=== PATIENT | male | born 1950 | race African-American/Black ===

== ENCOUNTER 2016-08-29 05:54 | Inpatient (IN) | payer OTHER, MEDICARE ==
--- NOTE | 2016-08-28 16:16 | GHP ---
[f rep st] PREOP HISTORY AND PHYSICAL Amended report ADMISSION DIAGNOSIS: Adenocarcinoma of the prostate. HISTORY OF PRESENT ILLNESS: This is a 66-year-old male who had [employer] insurance, was diagnosed with Carla score 6, and 66% of the cores had a positive biopsy. He had a Prolaris that showed a more aggressive lesion at 4.5. His most recent PSA of 05/2016 of 10.5. MRI noted a BI-RADS 4 anterior transition zone lesion. Options have been outlined and at the present time he is admitted for a robotic-assisted radical prostatectomy with bilateral pelvic lymphadenectomy. PAST MEDICAL HISTORY: He has had BPH, diabetes, erectile dysfunction. PAST SURGICAL HISTORY: Hip and knee surgery. MEDICATIONS: Include allopurinol, Flagyl, levothyroxine, aspirin, simvastatin. ALLERGIES: None. FAMILY HISTORY: Hypertension, heart disease, and diabetes. SOCIAL HISTORY: Alcohol rare consumption/never, and nonsmoker. REVIEW OF SYSTEMS: Negative cardiac, respiratory, GI, and endocrine. PHYSICAL EXAMINATION: VITAL SIGNS: Stable. CHEST: Clear. HEART: Regular rate and rhythm. ABDOMEN: Normal. No organomegaly, rebound, or guarding. LOWER EXTREMITIES: Normal. IMAGING STUDIES: He has had an MRI that reveals a prostate volume of 35 g, and at the right anterior transition zone there is a 1.4 cm T2 signal hypointensity lesion and avid early arterial enhancement in the region. The diffusion images are markedly degraded due to the left hip and are nondiagnostic. Seminal vesicles are unremarkable. There is no appearance of neurovascular bundle involvement and no significant lymphadenopathy on MRI. PLAN: Indications, complications, and options have been discussed. Written and verbal consent was obtained. He is admitted for the above procedure. /[id number]/MODL Add acc#, 08/28/16, isamar SCOTT
--- NOTE | 2016-08-28 16:56 | PDHPUP ---
History & Physical Update H&P update statement: This history and physical update is based on an assessment of the patient which was completed after admission or registration (within 24 hours), but prior to the surgery/procedure. H&P update: H&P reviewed & patient examined, no change in patient's condition since H&P completed
[2016-08-29] MEDS ORDERED: ceFAZolin 3 GM in D5W 100 ML IV ONE (06:00)
[2016-08-29] MEDS ORDERED: LIDOCAINE 1% 2 ML INJ ID PRN (06:51)
[2016-08-29] MEDS ORDERED: LR 1,000 ML IV ONE (06:51)
[2016-08-29] MEDS ORDERED: MIDAZOLAM 2 MG/2 ML VIAL IVP ONE (07:03)
--- NOTE | 2016-08-29 07:05 | PDANEPAE ---
ANE History of Present Illness Patient presents for Robotic Prostate ANE Past Medical History - Cardiovascular History Hx Hypertension: No Hx Arrhythmias: No Hx Chest Pain: No Hx Coronary Artery / Peripheral Vascular Disease: No Hx CHF / Valvular Disease: No Hx Palpitations: No Cardiovascular History Comment: elevated cholesterol - Pulmonary History Hx COPD: No Hx Asthma/Reactive Airway Disease: Yes Hx Recent Upper Respiratory Infection: No Hx Oxygen in Use at Home: No Hx Sleep Apnea: No - Neurologic History Hx Cerebrovascular Accident: No Hx Seizures: No Hx Dementia: No - Endocrine History Hx Diabetes: No Endocrine History Comment: has been told he is prediabetic. gout. hypothyroidism - Renal History Hx Renal Disorders: No - Liver History Hx Hepatic Disorders: No - Neurological & Psychiatric Hx Hx Neurological and Psychiatric Disorders: No - Cancer History Hx Cancer: Yes Cancer History Comment: prostate cancer - Congenital Disorder History Hx Congenital Disorders: No - GI History Hx Gastrointestinal Disorders: No - Other Health History Other Health History: couple missing teeth on right side - Chronic Pain History Chronic Pain: No - Surgical History Prior Surgeries: right achilles tendon repair. bilateral meniscus. left hip replacement 2015 ANE Review of Systems - Exercise capacity Exercise capacity: >=4 METS METS (RN): 4 METS ANE Patient History - Allergies Allergies/Adverse Reactions: lisinopril Allergy (Severe, Verified 08/09/16 14:30) - Home Medications Home Medications: Albuterol Sulfate [Ventolin Hfa] 1 puffs IH Q6 PRN 08/09/16 [Last Taken 05:30] Allopurinol [Allopurinol 300 MG (RX)] 300 mg PO DAILY 08/09/16 [Last Taken 08/27] Aspirin [Aspirin 81mg (*)] 81 mg PO DAILY 08/09/16 [Last Taken 08/22/16] Cholecalciferol Vit D3 [Vitamin D3 (*)] 2,000 units PO DAILY 08/09/16 [Last Taken 08/22/16] Levothyroxine [Synthroid 100 mcg (*)] 100 mcg PO DAILY06 08/09/16 [Last Taken ] Simvastatin 40 mg PO DAILY 08/09/16 [Last Taken 08/27/16] - Smoking Hx Smoking Status: Never smoked - Family Anes Hx Family Hx Anesthesia Complications: none ANE Labs/Vital Signs - Vital Signs Height: 185.42 cm Weight: 122.47 kg ANE Physical Exam - Airway Neck exam: FROM Mallampati Score: Class 1 Mouth exam: normal dental/mouth exam - Pulmonary Pulmonary: no respiratory distress - Cardiovascular Cardiovascular: regular rate and rhythym - ASA Status ASA Status: II ANE Anesthesia Plan Anesthesia Plan: general endotracheal anesthesia (rba discussed)
[2016-08-29] MEDS ORDERED: PROPOFOL 200 MG/20 ML VIAL ONE ×2 (07:08→07:10)
[2016-08-29] MEDS ORDERED: MIDAZOLAM 2 MG/2 ML VIAL ONE (07:08)
[2016-08-29] MEDS ORDERED: fentaNYL 100 MCG/2 ML INJ ONE (07:08)
[2016-08-29] MEDS ORDERED: BUPIVACAINE 0.5% 30 ML SDV ONE (07:43)
[2016-08-29] MEDS ORDERED: ONDANSETRON 4 MG/2 ML VIAL ONE (07:46)
[2016-08-29] MEDS ORDERED: ROCURONIUM 50 MG/5 ML VIAL ONE ×2 (07:46)
[2016-08-29] MEDS ORDERED: DEXAMETHASONE 4 MG/ML VIAL ONE (07:46)
[2016-08-29] MEDS ORDERED: HYDROmorphONE/DILAUDID 2 MG/ML INJ ONE ×2 (08:10→10:25)
[2016-08-29] MEDS ORDERED: THROMBIN(HUM PLAS)/FIBRINOG/CA 5 ML VIAL TP ONE (09:51)
[2016-08-29] MEDS ORDERED: SUGAMMADEX SODIUM 200 MG/2 ML VIAL IVP ONE (10:29)
[2016-08-29] MEDS ORDERED: fentaNYL 100 MCG/2 ML INJ IVP PRN (10:32)
[2016-08-29] MEDS ORDERED: ONDANSETRON 4 MG/2 ML VIAL IVP PRN ×2 (10:32→11:00)
[2016-08-29] MEDS ORDERED: NALOXONE HCL 0.4 MG/ML INJ IVP PRN ×2 (10:32→11:04)
[2016-08-29] MEDS ORDERED: ALBUTEROL 3 ML DEYVIAL IH PRN (10:32)
[2016-08-29] MEDS ORDERED: ALBUTEROL INH PREPACK MDI TAKEHOME PRN (10:59)
[2016-08-29] MEDS ORDERED: ZOLPIDEM TARTRATE 5 MG TAB PO PRN (11:00)
[2016-08-29] MEDS ORDERED: ACETAMINOPHEN 325 MG TAB PO PRN (11:00)
[2016-08-29] MEDS ORDERED: METOCLOPRAMIDE 10 MG/2 ML VIAL IVP PRN (11:00)
[2016-08-29] MEDS ORDERED: D5W 1/2 NS 1,000 ML IV SCH (11:00)
[2016-08-29] MEDS ORDERED: ALBUTEROL 200 PUFFS/18 GM MDI IH PRN (11:03)
--- NOTE | 2016-08-29 11:03 | GCON ---
[f rep st] CONSULTATION INTRAOPERATIVE CONSULTATION DATE OF CONSULTATION: 08/29/2016 REFERRING PHYSICIAN: Jose Alberto Sahu MD I was asked to see the patient by Dr. Jose Alberto Sahu. As Dr. Sahu was completing his robotic prostate ctomy, he noticed an umbilical hernia. The 12 mm port used for the camera was placed above the umbi licus and numerous other ports were present on the distended abdomen. The actual umbilical hernia i s a 25 cent piece at least in size. My recommendations are to leave it alone. It obviously was not causing him any particular problems preoperatively. Very unlikely to incarcerate given the large size, and it would certainly contribut e to increased pain postoperatively it we were to address it now. Would also not have the opportuni ty to use a patch because of there being urine spilled in the field during the surgery. He can cert ainly be evaluated postop for an elective umbilical hernia repair, but I would not add it to the nemesio e at this time. /[id number]/MODL
[2016-08-29] MEDS ORDERED: HYDROmorphONE/DILAUDID 6 MG/30 ML PCA IV PRN (11:04)
--- NOTE | 2016-08-29 11:07 | POSTOPPROG ---
Post Op Note Date of Operation: 08/29/16 Surgeon: Jose Alberto Sahu [employer] Supervisor: Aliyah Anesthesiologist: Gadiel Anesthesia: GET(General Endotracheal) Pre-op Diagnosis: prostate cancer Post-op Diagnosis: same/ abdominal hernia Indication: same Procedure: RA-RRP and PLND Inf/Abcess present in the surg proc area at time of surgery?: No EBL: 100-500 Drains: Isaiah Sewell, Other (lainez) Specimen(s): sent, dict op note
--- NOTE | 2016-08-29 12:09 | POSTANESTH ---
Post Anesthetic Evaluation Cardiovascular Status: Normal, Stable Respiratory Status: Normal, Stable Level of Consciousness/Mental Status: Can Participate in Eval Pain Control: Adequate, Prn Tx Ordered Nausea/Vomiting Control: Adequate, Prn Tx Ordered Complications Possibly Related to Anesthesia: None Noted
--- NOTE | 2016-08-29 12:29 | GOP ---
[f rep st] OPERATIVE REPORT DATE OF OPERATION: SURGEON: Jose Alberto Sahu MD LEATHER CRAFTER: Stephania Ly CFA. ANESTHESIA: General anesthesia. ANESTHESIOLOGIST: Ernst Ramesh MD. PREOPERATIVE DIAGNOSIS: Adenocarcinoma of the prostate. POSTOPERATIVE DIAGNOSIS: Adenocarcinoma of the prostate. PROCEDURE PERFORMED: Robotic-assisted radical prostatectomy, and bilateral pelvic lymph node dissection. FINDINGS: normal anatomy SPECIMENS: Pelvic lymph nodes and prostate with seminal vesicles. ESTIMATED BLOOD LOSS: Per anesthesia, 250 mL. DESCRIPTION OF PROCEDURE: The patient underwent general anesthesia, and after appropriate time-out and being positioned appropriately for the robotic procedure, on the draping his abdominal skin area was covered with a skin- adherent drape, and because of abdominal obesity, I placed a Veress needle just below the left upper rib cage, and inflated his abdomen to 15 mmHg pressure with carbon dioxide. He did have a large complicated umbilical hernia, so I placed the camera port above the umbilical hernia and the supraumbilical hernia , under direct vision, and then placed the three 8 mm ports and the 12 mm medical assistant secretary port. I used a long port for all of the device because of his abdominal girth size and subcutaneous fat content. At that point, identified the space between the bladder and the sigmoid colon, and incised the peritoneum over that. Identified ampulla of vas deferens and seminal vesicles, and resected that, severed from the rectum, and then also the posterior part of the prostate from the rectum sharply, going through [place] fascial layers. The hemostasis provided with Hem-o-loks and electrocautery, and dropped the bladder down in the normal fashion, and hemostasis was noted of the bladder and umbilical vessels and the urachus. Identified the endopelvic fascia on the right and left sides, which was incised, and the dorsal venous complex, after taking down the puboprostatics, was managed with two #0 Vicryl sutures, and then at that point, defatted the anterior part of the prostate. Dissected the bladder off the base of the prostate. He had a large right lateral lobe of the prostate that pushed the catheter way to the left. Identified the bladder opening, and then, at that point, dissected the posterior part of the bladder neck, and meticulous care not to enter prostatic tissue and separate the plane between the bladder and prostate, was made. Because of the size and the positioning of the narrow pelvis, I elected to manage the vasculature supply with the tissue sealer ligator, and I was able to dissect the artery and neurovascular bundle on the right side separate and preserve it. On the left side, that side was taken, and at that point, at the apex of the prostate, transected it. Hemostasis was noted after transecting the prostate and apex, and I inspected the anterior rectal wall, and there was no trauma to the rectum identified. The right neurovascular bundle had a pulsating vessel going through it down to below the pubis, and appeared to be intact. At that point, a David stitch was used, and the anastomosis was performed with a 4-0 running Monocryl. It was tested and noted to be watertight. Bridged with a Laurent catheter. 40 cc balloon inflated, and then biologic glue was used to enforce the anastomosis. Then, the pelvic lymphadenectomy was performed on both the right and left sides, with the same dissection margin being the external iliac veins that crossed over the pubic ramus, and then obturator nerve in the depth, and that was carried to the bifurcation of the vessels. Hemostasis was provided with Hem-o-loks and electrocautery, and then at the end of the procedure there were no bleeding sites. Decreased the pressure to 5 mm and no bleeding sites identified. Specimens were removed via a bag, and then closed the medical assistant secretary port site with a suture closure device, 0 Vicryl, and then, because of the large hernia, I asked Dr. Sánchez to assess that, and basically had an umbilical hernia, supraumbilical hernia, and my port site was above the supraumbilical site, and it was elected just to close my port site, and it was a horizontal opening and closure with an 0 Vicryl, and subcutaneous tissue was hemostatic and closed the subcutaneous tissue with a 3-0 Vicryl, and skin was approximated with 4-0 Monocryl, and no complications encountered. Specimen sent to Pathology. He will be admitted for postoperative care, and if he has problems with the umbilical hernia or the mid abdominal defects, we would refer him postoperatively to Dr. Sánchez, because he has seen the patient intraoperatively. The patient tolerated the procedure well. He will be admitted as noted. COMPLICATIONS: None. /[id number]/MODL MTDD
[2016-08-29] MEDS: OXYCODONE/APAP 5/325 TAB PO PRN (18:17)
[2016-08-29 18:49] LABS: HEMATOCRIT 34.7 % (40.0-51.0); HEMOGLOBIN 11.2 g/dL (13.7-17.5)
[2016-08-30] MEDS: OXYCODONE/APAP 5/325 TAB PO PRN ×2 (03:47→16:43)
[2016-08-30] MEDS: ONDANSETRON DISINTEGRATING 4 MG TAB PO PRN (03:49)
[2016-08-30 04:36] LABS: % IMMATURE GRANULYOCYTES 1.4 % (0.0-1.1); ABSOLUTE IMMATURE GRANULOCYTES 0.16 10^3/uL (0.00-0.10); ABSOLUTE NRBC COUNT 0.02 10^3/uL (0-0.01); ADD DIFF? NO; ADD MORPH? NO; ADD SCAN? NO; ATYPICAL LYMPHOCYTE FLAG 0 (0-99); FRAGMENT RBC FLAG 0 (0-99); HEMATOCRIT 30.1 % (40.0-51.0); HEMOGLOBIN 9.8 g/dL (13.7-17.5); LEFT SHIFT FLG 50 (0-99); LIPEMIA HEMOLYSIS FLAG 80 (0-99); MEAN CELL HEMOGLOBIN 27.7 pg (27.9-34.1); MEAN CELL HEMOGLOBIN CONCENTR. 32.6 g/dL (32.4-36.7); MEAN PLATELET VOLUME 9.9 fL (8.7-11.7); NRBC-AUTO% 0.2 % (0.0-0.2); PLATELET CLUMPS FLAG 0 (0-99); PLATELET COUNT 211 10^3/uL (150-400); RED BLOOD CELL COUNT 3.54 10^6/uL (4.40-6.38); RED CELL DISTRIBUTION WIDTH 15.1 % (11.5-15.2)
[2016-08-30 04:46] LABS: ANION GAP 8 mEq/L (8-16); CALCIUM 8.3 mg/dL (8.5-10.4); CARBON DIOXIDE 23 mEq/l (22-31); CHLORIDE 109 mEq/L (97-110); CREATININE 1.4 mg/dL (0.7-1.3); GLOMERULAR FILTRATION RATE 51; GLUCOSE 140 mg/dL (70-100); SODIUM 140 mEq/L (134-144)
[2016-08-30] MEDS: LEVOTHYROXINE 100 MCG TAB PO SCH (05:31)
[2016-08-30] MEDS: CHOLECALCIFEROL VIT D3 1,000 UNITS TAB PO SCH (08:23)
[2016-08-30] MEDS: ATORVASTATIN CALCIUM 20 MG TAB PO SCH (08:23)
[2016-08-30] MEDS: ALLOPURINOL 300 MG TAB PO SCH (08:23)
[2016-08-30] MEDS: ASPIRIN 81 MG CHEWABLE TAB PO SCH (08:23)
--- NOTE | 2016-08-30 08:28 | SOAPPROG ---
SOAP Progress Note Assessment/Plan: Assessment: Prostate cancer Acute POD 1, continue following HCT with possible venous bleed post op, CAT scan seems not impressive on pelvic hematoma by my review and will continue present care, assess HCT in AM Plan: continue care, follow serial hct 08/30/16 17:41 Subjective: doing well and no pain Objective: Vital Signs Temp Pulse Resp BP Pulse Ox 36.7 C 84 16 97/54 L 2 L 08/30/16 07:49 08/30/16 07:49 08/30/16 07:49 08/30/16 07:49 08/30/16 07:49 Laboratory Results 08/30/16 04:14 08/30/16 04:14 08/29/16 08/30/16 08/31/16 05:59 05:59 05:59 Intake Total 2077 Output Total 610 450 Balance 1467 -450 Physical Exam - Physical Exam General Appearance: alert Neck: full range of motion Respiratory: No respiratory distress Cardiac/Chest: regular rate, rhythm Abdomen: soft (port sites normal) Male Genitalia: normal genitalia (cath ok) Back: No CVA tenderness Extremities: No calf tenderness, No Naomi's sign Neuro/Psych: alert, oriented x 3 ICD10 Worksheet Patient Problems: Problems Problem Status Onset Prostate cancer Acute - ICD10 Problem Qualifiers (1) Prostate cancer
[2016-08-30] MEDS ORDERED: NON-FORMULARY NEW DRUG (Simvastatin [Simvastatin] 40 MG) PO SCH (09:00)
[2016-08-30 12:53] LABS: HEMOGLOBIN 9.3 g/dL (13.7-17.5)
[2016-08-31] MEDS: OXYCODONE/APAP 5/325 TAB PO PRN ×2 (04:42→11:24)
[2016-08-31] MEDS: ONDANSETRON DISINTEGRATING 4 MG TAB PO PRN (04:42)
[2016-08-31] MEDS: LEVOTHYROXINE 100 MCG TAB PO SCH (04:43)
[2016-08-31 07:32] LABS: ANION GAP 8 mEq/L (8-16); CALCIUM 7.9 mg/dL (8.5-10.4); CARBON DIOXIDE 21 mEq/l (22-31); CHLORIDE 109 mEq/L (97-110); CREATININE 1.4 mg/dL (0.7-1.3); GLOMERULAR FILTRATION RATE 51; GLUCOSE 104 mg/dL (70-100); POTASSIUM 4.2 mEq/L (3.5-5.2); SODIUM 138 mEq/L (134-144)
[2016-08-31 07:35] VITALS: PULSE 80
[2016-08-31] MEDS: CHOLECALCIFEROL VIT D3 1,000 UNITS TAB PO SCH (08:49)
[2016-08-31] MEDS: ASPIRIN 81 MG CHEWABLE TAB PO SCH (08:49)
[2016-08-31] MEDS: ATORVASTATIN CALCIUM 20 MG TAB PO SCH (08:49)
[2016-08-31] MEDS: ALLOPURINOL 300 MG TAB PO SCH (08:49)
--- NOTE | 2016-08-31 09:07 | SOAPPROG ---
SOAP Progress Note Assessment/Plan: Assessment: Prostate cancer Acute POD 2, need assess this AM HCT yet lab rejected, reordered, CAT scan seems not impressive on pelvic hematoma by my review and will continue present care Plan: DC planning 08/31/16 09:59 Subjective: doing well Objective: Vital Signs Temp Pulse Resp BP Pulse Ox 36.8 C 80 17 108/53 L 95 08/31/16 07:33 08/31/16 07:33 08/31/16 07:33 08/31/16 07:33 08/31/16 07:37 Laboratory Results 08/31/16 05:00 08/31/16 05:00 08/30/16 08/31/16 09/01/16 05:59 05:59 05:59 Intake Total 9565 5838 Output Total 649 1930 Balance 1467 1803 Physical Exam - Physical Exam General Appearance: alert Neck: normal inspection Respiratory: No respiratory distress Cardiac/Chest: regular rate, rhythm Abdomen: soft Male Genitalia: normal genitalia (cath ok) Back: No CVA tenderness Skin: warm/dry Extremities: No calf tenderness, No Naomi's sign Neuro/Psych: alert, oriented x 3 ICD10 Worksheet Patient Problems: Problems Problem Status Onset Prostate cancer Acute - ICD10 Problem Qualifiers (1) Prostate cancer
[2016-08-31 10:05] LABS: HEMATOCRIT 29.1 % (40.0-51.0); HEMOGLOBIN 9.4 g/dL (13.7-17.5)
[2016-08-31 11:04] VITALS: BP 115/57; RESP 16
[2016-08-31 11:05] VITALS: TEMP 98.4; O2SAT 92
== END 2016-08-31 12:52 | disposition home or self-care (01) | DRG 707 ==
LOC: INTOOBSV 05:54 → F1N 05:54 → OBSVTOIN 08-30 08:15
PROVIDERS: ADMIT Specialist; ATTEND Specialist
PROC: 8E0W4CZ Robotic Assisted Procedure of Trunk Region, Percutaneous Endoscopic Approach (ICD-10-PCS; principal; 2016-08-29 07:15)
PROC: 0VT04ZZ Resection of Prostate, Percutaneous Endoscopic Approach (ICD-10-PCS; principal; 2016-08-29 07:15)
PROC: 07BC4ZX Excision of Pelvis Lymphatic, Percutaneous Endoscopic Approach, Diagnostic (ICD-10-PCS; principal; 2016-08-29 07:15)
DX: C61 Malignant neoplasm of prostate (principal); N99.840 Postprocedural hematoma of a genitourinary system organ or structure following a genitourinary system procedure; E11.9 Type 2 diabetes mellitus without complications; N52.9 Male erectile dysfunction, unspecified; N40.0 Benign prostatic hyperplasia without lower urinary tract symptoms; K42.9 Umbilical hernia without obstruction or gangrene
CPT/HCPCS: J0690; J1100; J1170; J2250; J2405; J2704; J2765; J3010